=== PATIENT | male | born 2005 | race Caucasian/White ===

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

== ENCOUNTER 2024-03-19 16:42 | Emergency (ER) | payer OTHER, SELFPAY ==
[2024-03-19 16:43] VITALS: BP 178/140; PULSE 137; RESP 18; TEMP 36.1; O2SAT 96
[2024-03-19 17:17] VITALS: BMI 24.7
[2024-03-19 17:22] VITALS: BP 136/69; PULSE 66; RESP 15; TEMP 36.7; O2SAT 99
[2024-03-19 17:25] LABS: Absolute Lymphocyte Count 0.68 X10^3/uL (0.83-4.51); Absolute Neutrophil Count 20.2 X10^3/uL (2.0-7.7); Basophil# 0.06 X10^3/uL; Basophil% 0.3 % (0-1); Hematocrit 43.3 % (40-54); Hemoglobin 15.5 g/dL (13.0-16.5); Lymphocyte # 0.68 X10^3/ul (0.83-4.51); Lymphocyte % 3.1 % (19-41); Mean Corp Hgb Conc 35.8 g/dL (32-36); Mean Corpuscular Hgb 31.5 pg (27.0-32.0); Mean Platelet Vol. 8.7 fl (6.2-12.0); Monocyte# 0.97 X10^3/uL; Monocyte% 4.4 % (0-10); NRBC Flagged by Analyzer 0 % (0-5); Neutrophil # 20.15 X10^3/uL (2.7-7.7); Neutrophil % 91.6 % (47-70); POSITIVE DIFFERENTIAL YES; Platelet Count 318 K/mm3 (150-450); RBC Distribution Width CV 11.5 % (11.6-14.6); RBC Distribution Width SD 36.6 fl (35.1-43.9); Red Blood Count 4.92 M/mm3 (4.6-6.2)
[2024-03-19 17:27] LABS: Differential Indicated SCAN CRITERIA MET
[2024-03-19] MEDS: Ondansetron 4 MG/2 ML Vial IV (17:27)
[2024-03-19] MEDS: 0.9% Normal Saline (1000mL) 1,000 ML 1000 ML IV (17:27)
[2024-03-19 17:43] LABS: ALB/GLOB Ratio 1.1 RATIO (0.9-2.4); AST(SGOT) 32 U/L (15-37); Alanine Aminotransfer ALT/SGPT 53 U/L (16-61); Albumin, Serum 4.8 g/dL (3.2-5.0); Alkaline Phosphatase 93 U/L (45-117); Anion Gap 11 (5-15); BUN 20 mg/dL (7-18); BUN/Creat Ratio 21.2 RATIO (10-20); Calcium,Total 9.9 mg/dL (8.5-10.1); Chloride 103 mmol/L (98-107); Creatinine, Serum 0.94 mg/dL (0.70-1.30); EST Glomerular Filtration Rate 109 mL/min (>60); Est Glom Filt Rate - Afr Amer 131 mL/min (>60); Globulin 4.2 g/dL (2.2-4.2); Glucose 125 mg/dL (74-106); Potassium 3.7 mmol/L (3.5-5.1); Sodium Level 138 mmol/L (136-145)
--- NOTE | 2024-03-19 17:52 | EX.ED.DYSGE1 ---
HPI History of Present Illness Chief Complaint: Nausea/Vomiting Detail of Chief Complaint: Patient presents with viral-like symptoms. Mother was diagnosed with influ Informant: patient and parent Onset/Context/Timing Onset: Today (Today nausea and vomiting multiple times.) and Days Context: Sudden Onset Timing: Intermittent Quality: Viral-like symptoms predominantly GI Location: Respiratory and GI Current Severity: Moderate Maximum Severity: Severe Worsened by: Attempt to eat or drink anything Relieved by: Nothing Associated Symptoms Associated Symptoms: Upper respiratory tract infectious symptoms and GI symptoms predominantly N Narrative Narrative: Patient is a 18-year-old male. He apparently was ill with respiratory like symptoms several weeks ago. Mother became ill. Mother was diagnosed with influenza A. He presents with myalgias, nausea and vomiting and did have initially mild respiratory symptoms. He presently denies headache, photophobia or sonophobia. Nuys neck pain or neck stiffness. He does endorse sore throat. He does have a slight cough that is nonproductive. He does endorse thirst, dry mouth and lightheadedness. He denies rash. Denies joint swelling. He is on no medication and has no allergies. Prior similar symptoms: No Recent Illness/Hospitalization: Yes [facility] Medical History Depression Home Medications ?Medication ?Instructions ?Recorded ?Last Taken ?Type ondansetron 4 mg disintegrating 4 mg PO Q8H PRN PRN Nausea #10 tabs 03/19/24 Unknown Rx tablet Allergy/AdvReac Type Severity Reaction Status Date / Time No Known Allergies Allergy Verified 03/19/24 16:43 Social History Smoking Status: Current some day smoker tobacco type: e-cigarettes ROS ROS ED Constitutional Constitutional ED: Reports chills, fever(s), subjective and sweats; Denies weight loss Eyes Eyes: Denies blurry vision, change in vision or diplopia ENT ENT ED: Reports rhinorrhea and sore throat; Denies ear pain Cardiovascular Cardiovascular: Denies chest pain, orthopnea, palpitations or paroxysmal nocturnal dyspnea Respiratory/Chest Respiratory/Chest: Reports cough; Denies dyspnea, dyspnea on exertion, orthopnea or paroxysmal nocturnal dyspnea Gastrointestinal Gastrointestinal: Reports abdominal pain, nausea, vomiting and other Details: Emesis is bilious. ; Denies constipation, diarrhea or melena Genitourinary Genitourinary ED: Denies dysuria, hematuria or urinary frequency Musculoskeletal Musculoskeletal: Reports myalgias; Denies arthralgias Integumentary Denies rash Neurologic Neurologic: Reports headache(s) and weakness; Denies paresthesias Endocrine Endocrinology: Denies cold intolerance or heat intolerance Hematologic/Lymphatic Hematologic/Lymphatic: Reports systems reviewed and no addt'l complaints, except as documented EXAM Physical Exam Const Vital Signs: 03/19/24 16:43 03/19/24 17:22 Temperature 96.9 F L 98.1 F Temperature Source Temporal Oral Pulse Rate 137 H 66 Respiratory Rate 18 15 Blood Pressure 178/140 H 136/69 H Blood Pressure Mean 152 91 Pulse Ox 96 99 Oxygen Delivery Method Room Air Room Air Positive well nourished and well developed Constitutional Narrative: Patient is pale and appears ill. Initial vitals are marked for elevated blood pressure and tachycardia. This was obtained when patient was sitting upright. This most likely represents an consistent with orthostatic hypotension which he endorsed General Appearance ED: well developed and pallor; Negative for cyanotic, diaphoretic or NAD HEENT Reports dry mucous membranes HEENT Narrative: Head is atraumatic normocephalic. Ears normal. Nares patent. Posterior pharynx erythema or exudate. Mouth ED: Yes dry mucous membranes Mouth: dry mucous membranes Eyes PERRL and EOMs intact bilaterally General Eye ED: Negative for pale conjunctiva or scleral icterus Neck no lymphadenopathy, supple and no JVD Chest Wall inspection of chest normal and palpation of chest normal Resp normal respiratory effort and clear to auscultation bilaterally Cardio regular rhythm, S1 normal heart sound, S2 normal heart sound and no murmurs Rate: tachycardic GI normal to inspection, nondistended, normoactive bowel sounds, non-tender, non-distended and no masses; Negative for hepatosplenomegaly Back/Spine no CVA tenderness Extremity normal to inspection General Extremety ED: Negative for edema or tenderness General Extremity: Negative for edema Neuro oriented x3 and CN's II-XII intact bilaterally Sensorium / Orientation: alert Psych mental status grossly normal Skin no rashes or lesions noted and no wounds General Skin Exam: elasticity normal and pallor; Negative for jaundice MDM MDM MDM Narrative Medical decision making narrative: Patient has viral-like symptoms. Since mother had influenza A will assess for influenza. 1 L of normal saline was ordered and Zofran for the nausea and vomiting. Clinically is dehydrated. He also was tachycardic and most likely his vitals and from triage in an upright position are consistent with hypovolemia from vomiting. CBC was obtained per nurse protocol. Electrolyte panel was ordered to assess BUN/creatinine ratio as well as CO2 anion gap and evaluate for hyperglycemia/DKA. Lab Data Attestation: I reviewed the patient's lab results. Lab results narrative: White count is elevated 22,000. There is 91% segs with no bands. H&H is normal. Electrolyte panel is remarkable for elevated BUN to creatinine ratio of 21:1. Glucose of 125 with normal CO2 anion gap. Labs: Laboratory Results - last 24 hr 03/19/24 03/19/24 17:15 18:13 WBC 22.0 H RBC 4.92 Hgb 15.5 Hct 43.3 MCV 88.0 MCH 31.5 MCHC 35.8 RDW Std Deviation 36.6 RDW Coeff of Vivian 11.5 L Plt Count 318 MPV 8.7 Immature Gran % (Auto) 0.600 Neut % (Auto) 91.6 H Lymph % (Auto) 3.1 L [place]cal[place] % (Auto) 4.4 Eos % (Auto) 0.0 Baso % (Auto) 0.3 Absolute Neuts (auto) 20.2 H Absolute Lymphs (auto) 0.68 L Nucleated RBC % 0 Differential Comment SCANNED Sodium 138 Potassium 3.7 Chloride 103 Carbon Dioxide 23.0 Anion Gap 11 BUN 20 H Creatinine 0.94 Estim Creat Clear Calc 126.40 Est GFR (MDRD) Af Amer 131 Est GFR (MDRD) Non-Af 109 BUN/Creatinine Ratio 21.2 H Glucose 125 H Calcium 9.9 Total Bilirubin 1.30 H AST 32 ALT 53 Alkaline Phosphatase 93 Total Protein 9.0 H Albumin 4.8 Globulin 4.2 Albumin/Globulin Ratio 1.1 Urine Color Yellow Urine Clarity Clear Urine pH 5.0 Ur Specific [place] 1.025 Urine Protein 30 H Urine Glucose (UA) Normal Urine Ketones 150 A* Urine Occult Blood 10 H Urine Nitrite Negative Urine Bilirubin Negative Urine Urobilinogen Normal Ur Leukocyte Esterase Negative Urine RBC 0 SEEN Urine WBC 0-5 SEEN Ur Squamous Epith Cells 0 SEEN Urine Bacteria 1+ Urine Mucus 1+ Urinalysis reveals elevated spec gravity 1.025, ketones, blood. Micro is remarkable for bacteriuria. Since he is asymptomatic will not treat. Rapid antigen for influenza, COVID RSV was positive for COVID. Mother and patient was made aware of this. Discharge Plan Triage Chief Complaint: Nausea/Vomiting ED Provider: Roney Muhammad Dx/Rx/DC Orders Clinical Impression: COVID-19 virus infection, Nausea and vomiting, Orthostatic hypotension, Hypovolemia associated with vomiting, Acute prerenal azotemia, Sinus tachycardia, Acute dehydration, Viral cephalgia Instructions: Coronavirus Disease 2019 (COVID-19): Caring for Yourself or Others Prescriptions: New ondansetron 4 mg tablet,disintegrating 4 mg PO Q8H PRN PRN (Reason: Nausea) Qty: 10 0RF Primary Care Provider: Lyndon Clemente Referrals: Lyndon Clemente MD [Primary Care Provider] - 1 Week if not improving Activity Restrictions/Additional Instructions: 1. Take either 4 ibuprofen tablets every 8 hours or 2 Aleve tablets every 12 hours for next 3 to 5 days 2. Increase your fluid intake 3. You may be ill for another 5 to 10 days Print Language: Lithuanian Disposition Disposition: Home, Self Care
[2024-03-19 18:03] LABS: Differential Comment SCANNED
[2024-03-19 18:26] LABS: Color, Urine Yellow (Yellow); Glucose, Dipstick Normal (Normal); Leukocyte Esterase-Dipstick Negative /ul (Negative); Nitrite-Dipstick Negative (Negative); Occult Blood-Urine 10 /ul (Negative); Protein-Dipstick 30 mg/dl (Negative); Red Blood Cells-Urine 0 SEEN /hpf (0-5); Specific Gravity, Urine 1.025 (1.002-1.030); Squamous Epithelial Cells - UA 0 SEEN /hpf (0-5); Urine Bilirubin Dipstick Negative (Negative); Urine Clarity Clear (Clear); Urine Urobilinogen Normal (Normal)
[2024-03-19 18:36] LABS: Ketone-Dipstick 150 mg/dl (Negative)
[2024-03-19 18:37] LABS: Bacteria 1+ /hpf (None Seen); Mucous, Urine 1+ /hpf (<or=2+); White Blood Cells 0-5 SEEN /hpf (0-5)
[2024-03-19 19:00] VITALS: BP 110/78; PULSE 89; RESP 16; TEMP 36.6; O2SAT 99
== END 2024-03-19 19:26 | disposition home or self-care (01) ==
PROVIDERS: Emergency Provider Emergency Medicine; PCP Family Medicine; Visit Provider Emergency Medicine
DX: U07.1 COVID-19 (principal); I95.1 Orthostatic hypotension; E86.0 Dehydration; R00.0 Tachycardia, unspecified; R11.2 Nausea with vomiting, unspecified; R51.9 Headache, unspecified; R79.89 Other specified abnormal findings of blood chemistry; F17.210 Nicotine dependence, cigarettes, uncomplicated
CPT/HCPCS: 80053; 81001; 85025; 87502; 87631; 96361; 96374; 99283; A4216; J2405

== ENCOUNTER → 2024-09-13 | Outpatient (CLI) | payer OTHER, SELFPAY ==
--- NOTE | 2024-09-13 08:38 | RAD_ITS ---
PROCEDURE: SHOULDER MIN 2 VIEWS 09/13/2024 REASON FOR EXAM: PAIN/INJURY TECHNIQUE: Four view left shoulder series COMPARISON: Left shoulder study of 11/18/2021. RAD/Shoulder min 2 Views IMPRESSION: No arthritic process or joint narrowing is noted. Satisfactory osseous alignment is seen throughout. No fracture or dislocation is noted. If clinical concern persists, short-term follow-up imaging may be obtained to r ule out a currently occult fracture. Reading Location: [place] [id number]
== END | disposition home or self-care (01) ==
LOC: MTRAD 08:38
PROVIDERS: PCP Family Medicine; Referring Provider Nurse Practitioner Family; Visit Provider Nurse Practitioner Family
DX: M25.512 Pain in left shoulder (principal)
CPT/HCPCS: 73030